=== PATIENT | male | born 1985 | race Caucasian/White ===

== ENCOUNTER 2017-05-15 03:37 | Emergency (ER) | payer OTHER ==
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
[2017-05-15] MEDS ORDERED: 0.9% Sodium Chloride 1,000 ML IV ONE (04:09)
[2017-05-15] MEDS ORDERED: LORazepam 1 mg Tablet PO ONE (04:10)
[2017-05-15 04:34] LABS: BASOPHILS % (AUTO) 0.2 % (0-3); EOSINOPHILS % (AUTO) 1.1 % (0-5); MONOCYTES % (AUTO) 4.9 % (4-12); Mean Corpuscular Hemoglobin 29.8 pg (27.0-35.0); Mean Corpuscular Volume 86.8 fL (81-100); NEUTROPHILS % (AUTO) 82.2 % (40-74); Platelet Count 336 bil/L (150-400)
[2017-05-15 04:47] VITALS: BP 132/90; PULSE 110; RESP 24; O2SAT 98
[2017-05-15 04:53] LABS: INR 0.92 ratio
[2017-05-15 05:11] LABS: APPEARANCE,URINE CLEAR (CLEAR,HAZY); COLOR,URINE YELLOW (YELLOW); OCCULT BLOOD,URINE TRACE (NEGATIVE)
[2017-05-15 05:24] LABS: Magnesium 2.3 mg/dL (1.6-2.6)
[2017-05-15 05:29] LABS: Lipase 48 U/L (13-60)
[2017-05-15] MEDS ORDERED: Haloperidol 5 mg/mL Inj ONE (05:33)
[2017-05-15 05:38] VITALS: BP 112/87; PULSE 107; RESP 16; O2SAT 98
[2017-05-15 06:19] VITALS: BP 151/89; PULSE 104; RESP 21; O2SAT 98
[2017-05-15 07:18] VITALS: BP 120/90; PULSE 102; RESP 21; O2SAT 98
[2017-05-15] MEDS ORDERED: LORazepam 2 mg Tablet PO ONE (08:05)
[2017-05-15] MEDS ORDERED: HYDROcodone-APAP 5-325 mg Tablet PO ONE (08:05)
[2017-05-15] MEDS ORDERED: SILV20CR4 TP (08:10)
[2017-05-15] MEDS ORDERED: LORA2TAB PO (08:10)
[2017-05-15] MEDS ORDERED: HYDR-4003 PO (08:10)
[2017-05-15] MEDS ORDERED: TdaP Vaccine 0.5 mL Inj IM ONE (08:40)
[2017-05-15 09:11] VITALS: BP 139/81; PULSE 93; RESP 18; O2SAT 95
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
== END 2017-05-15 09:10 | disposition home or self-care (01) ==
LOC: EDBD 03:37 → SED 03:37 → EDUNIT# 03:37 → SED 09:10
DX: T21.21XA Burn of second degree of chest wall, initial encounter (principal); T22.252A Burn of second degree of left shoulder, initial encounter; S00.82XA Blister (nonthermal) of other part of head, initial encounter; S80.819A Abrasion, unspecified lower leg, initial encounter; T31.0 Burns involving less than 10% of body surface; X00.1XXA Exposure to smoke in uncontrolled fire in building or structure, initial encounter; Y92.009 Unspecified place in unspecified non-institutional (private) residence as the place of occurrence of the external cause; Y93.02 Activity, running; Y99.8 Other external cause status; F43.21 Adjustment disorder with depressed mood; Z23 Encounter for immunization; Z87.891 Personal history of nicotine dependence
CPT/HCPCS: 16025; 36415; 71010; 80053; 81001; 83690; 83735; 85025; 85610; 85730; 90471; 90715; 96361; 96374; 96375; 99291; G0480; J1630; J1885; J2060; J7030